=== PATIENT | female | born 1980 | race Caucasian/White ===

== ENCOUNTER → 2018-06-29 | Outpatient (REF) | payer BC ==
[~2018-06-29] MED LIST: PRENTAB55 PO; VITA100066 PO
== END ==
LOC: M LAB REF 10:51
PROVIDERS: ATTEND Physician Assistant
DX: J02.9 Acute pharyngitis, unspecified (principal)

== ENCOUNTER → 2019-12-24 | Outpatient (REF) | payer BC | LOC: M LAB REF 12-23 12:21 | PROVIDERS: ATTEND Nurse Practitioner Family | DX: J02.9 Acute pharyngitis, unspecified (principal) ==

== ENCOUNTER 2021-03-18 08:23 | Emergency (ER) | payer BC ==
[~2021-03-18] VITALS: Ht 157.5 cm; Wt 115.9 kg
--- OUTSIDE RECORDS SUMMARY | 2021-03-18 08:28 | CCD ---
Author Author [facility] Organization [facility] Address Unknown Phone Unavailable Care Team Providers Care Reeling Operator Name Role Phone RING, K SHERYL PA Unavailable Unavailable RING, K SHERYL PA Unavailable Unavailable RING, K SHERYL PA Unavailable Unavailable RING, K SHERYL PA Unavailable Unavailable RING, K SHERYL PA Unavailable Unavailable RING, K SHERYL PA Unavailable Unavailable RING, K SHERYL PA Unavailable Unavailable RING, K SHERYL PA Unavailable Unavailable RING, K SHERYL PA Unavailable Unavailable RING, K SHERYL PA Unavailable Unavailable RING, K SHERYL PA Unavailable Unavailable RING, K SHERYL PA Unavailable Unavailable RING, K SHERYL PA Unavailable Unavailable RING, K SHERYL PA Unavailable Unavailable RING, K SHERYL PA Unavailable Unavailable RING, K SHERYL PA Unavailable Unavailable RING, K SHERYL PA Unavailable Unavailable RING, K SHERYL PA Unavailable Unavailable RING, K SHERYL PA Unavailable Unavailable RING, K SHERYL PA Unavailable Unavailable RING, K SHERYL PA Unavailable Unavailable Re-disclosure Warning The records that you are about to access may contain information from federally-assisted alcohol or drug abuse programs. If such information is present, then the following federally mandated warning applies: This information has been disclosed to you from records protected by federal confidentiality rules (42 CFR part 2). The federal rules prohibit you from making any further disclosure of this information unless further disclosure is expressly permitted by the written consent of the person to whom it pertains or as otherwise permitted by 42 CFR part 2. A general authorization for the release of medical or other information is NOT sufficient for this purpose. The Federal rules restrict any use of the information to criminally investigate or prosecute any alcohol or drug abuse patient.The records that you are about to access may contain highly sensitive health information, the redisclosure of which is protected by Article 27-F of the [facility] Public Health law. If you continue you may have access to information: Regarding HIV / AIDS; Provided by facilities licensed or operated by the [facility] Office of Mental Health; or Provided by the [facility] Office for People With Developmental Disabilities. If such information is present, then the following [facility] mandated warning applies: This information has been disclosed to you from confidential records which are protected by state law. State law prohibits you from making any further disclosure of this information without the specific written consent of the person to whom it pertains, or as otherwise permitted by law. Any unauthorized further disclosure in violation of state law may result in a fine or mcc sentence or both. A general authorization for the release of medical or other information is NOT sufficient authorization for further disc losure. Family History Family Member Name Family Member Gender Family Member Status Date o f Status Description Data Source(s) Unknown Unknown Problem [facility] ([facility]) father Unknown Unknown Problem [facility], ) father-dx age 50s/paternal grandfather-d x age unknown- in 60s (Her fathers colon cancer pathology/genetic evals--MLH1,MSI-I6, MSI I2 immunohistochemical stains==>NO mismatch repair gene defect in MLH1,MSH1,MSH2) Encounters Encounter Providers Location Date Indications Data Source(s ) Outpatient Attender: SHERYL Galvan Primary 12/17/2020 09:25:00 AM EDT [facility] ([facility]) Immunizations Vaccine Date Status Description Data Source(s) COVID-19 VACCINE Pfizer 07/30/2020 12:00:00 AM EDT completed NYSIIS Vaccine Series Complete: YESThis Data wa s Submitted to [facility] Via [employer]. COVID-19 VACCINE Pfizer 07/09/2020 12:00:00 AM EST completed NYSIIS Vaccine Series Complete: NOThis Data was Submitted to [facility] Via [employer]. Medications Medication Brand Name Start Date Product Form Dose Route Admi nistrative Instructions Pharmacy Instructions Status Indications Reaction Description Data Source(s) Cephalexin 500 MG Oral Tablet Cephalexin 12/17/2020 12:00:00 AM EDT ORAL active MED[facility] ([facility]) Insurance Providers Payer name Policy type / Coverage type Policy ID Covered green party ID Covered green party's relationship to verde Policy Verde Plan Information BCBS [place] PPO 302/307 [id number] SP [id number] [employer] [id number] Self [id number] [place] - Employer Groups [facility] Part B [id number] Self [id number] BS/[place] [id number] Self [id number] [facility] SP BCBS [place] ROSAN PPO 302/[id number] SP [id number] [facility] BS Health Maintenance Organization (HMO) [id number] Self [id number] [employer]/[place] [id number] Self [id number] [employer] [facility] [employer] [id number] Self [id number] [facility] [id number] S [id number] Problems, Conditions, and Diagnoses No Information Surgeries/Procedures Procedure Description Date Indications Data Source(s) OFFICE OUTPATIENT VISIT 15 MINUTES 12/17/2020 12:00:00 AM EDT [facility] ([facility], [facility]) Results No Information Social History No Information Vital Signs ID Date Data Source UNK Name Value Range Interpretation Code Description Data Source(s) Systolic blood pressure 132 mm[Hg] 132 mm[Hg] [facility], [facility]) Diastolic blood pressure 92 mm[Hg] 92 mm[Hg] [facility] ([facility], [facility]) Heart rate 77 /min 77 /min [facility] ([facility], [facility]) Respiratory rate 16 /min 16 /min [facility] ( [facility], [facility]) Oxygen saturation in Arterial blood by Pulse oximetry 98 % 98 % [facility] ([facility], [facility]) Body temperature 98.1 [degF] 98.1 [degF] [facility] ([facility], [facility]) Body weight 250.00 [lb_av] 250.00 [lb_av] [facility] ([facility], [facility]) Body height 63 [in_i] 63 [in_i] [facility] ([facility]) 5'3" Body mass index (BMI) [Ratio] 44.3 kg/m2 44.3 k g/m2 [facility] ([facility])
[2021-03-18] MEDS ORDERED: GI COCKTAIL 50ML BTL(HYOSCYAMINE/MAALOX/LIDOCAINE VISCOUS)(1:3:1) PO ONE (09:15)
[2021-03-18] MEDS ORDERED: ASPIRIN 81 MG CHEW TABLET PO ONE (09:15)
--- NOTE | 2021-03-18 09:48 | REP ---
INDICATION: CHEST PAIN COMPARISON: None. TECHNIQUE: Portable AP view of the chest FINDINGS: The mediastinum and cardiac silhouette are within normal limits for portable technique. The lung shane are clear without acute consolidation, effusion, or pneumothorax. Skeletal structures are intact. IMPRESSION: No acute cardiopulmonary process appreciated. <Electronically signed by Blake Feliz > 03/18/21 0928
[2021-03-18 09:49] LABS: BASO # 0.1 10^3/uL (0.0-0.2); BASO % 1.3 % (0.0-1.0); EOS # 0.1 10^3/uL (0.0-0.5); EOS % 1.6 % (0.0-3.0); HEMATOCRIT 40.8 % (36.0-47.0); HEMOGLOBIN 13.4 g/dl (12.0-15.5); LYMPH # 1.7 10^3/uL (1.5-5.0); LYMPH % 28.1 % (24.0-44.0); MEAN CORPUSCULAR HEMOGLOBIN 27.3 pg (27.0-33.0); MEAN CORPUSCULAR HGB CONC 32.8 g/dl (32.0-36.5); MEAN CORPUSCULAR VOLUME 83.1 fl (80.0-96.0); MONO # 0.4 10^3/uL (0.0-0.8); MONO % 6.1 % (2.0-8.0); NEUTROPHILS # 3.9 10^3/uL (1.5-8.5); NEUTROPHILS % 62.7 % (36.0-66.0); PLATELET COUNT, AUTOMATED 342 10^3/uL (150-450); RED BLOOD COUNT 4.91 10^6/uL (4.00-5.40); WHITE BLOOD COUNT 6.2 10^3/uL (4.0-10.0)
--- OUTSIDE RECORDS SUMMARY | 2021-03-18 10:07 | CCD ---
Author Author [facility] Organization [facility] Address Unknown Phone Unavailable Care Team Providers Care Geopolitics Teacher Name Role Phone RING, K SHERYL PA [...] K SHERYL PA Unavailable Unavailable RING, K SHREYL PA Unavailable Unavailable RING, K SHERYL PA [...] is protected by Article 27-F of the [facility] Public Health law. If you continue you may have access to information: Regarding HIV / AIDS; Provided by facilities licensed or operated by the [facility] Office of Mental Health; or Provided by the [facility] Office for People With Developmental Disabilities. If such information is present, then the following [facility] mandated warning applies: This information has been [...] law may result in a fine or longterm sentence or both. A general authorization for the release of medical or other information is NOT sufficient authorization for further disc losure. Family History Family Member Name Family Member Gender Family Member Status Date o f Status Description Data Source(s) Unknown Unknown Problem [facility] ([facility]) father Unknown Unknown Problem [facility] ) father-dx age 50s/paternal grandfather-d x age unknown- in 60s (Her fathers colon cancer pathology/genetic evals--MLH1,MSI-I6, MSI I2 immunohistochemical stains==>NO mismatch repair gene defect in MLH1,MSH1,MSH2) Encounters Encounter Providers Location Date Indications Data Source(s ) Outpatient Attender: SHERYL Galvan Primary 12/17/2020 09:25:00 AM EDT [facility] ([facility]) Immunizations Vaccine Date Status Description Data Source(s) COVID-19 VACCINE Pfizer 07/30/2020 12:00:00 AM EDT completed NYSIIS Vaccine Series Complete: YESThis Data wa s Submitted to [facility] Via [email or web address]. COVID-19 VACCINE Pfizer 07/09/2020 12:00:00 AM EST completed NYSIIS Vaccine Series Complete: NOThis Data was Submitted to [facility] Via [email or web address]. Medications Medication Brand Name Start Date Product Form Dose Route Admi nistrative Instructions Pharmacy Instructions Status Indications Reaction Description Data Source(s) Cephalexin 500 MG Oral Tablet Cephalexin 12/17/2020 12:00:00 AM EDT ORAL active [facility] ([facility], [facility]) Insurance Providers Payer name Policy type / Coverage type Policy ID Covered alliance party ID Covered alliance party's relationship to verde Policy Verde Plan Information BCBS [place] PPO 302/307 [id number] SP [id number] [employer] [id number] Self [id number] [employer] - Employer Groups [facility] Part B [id number] Self [id number] BS/[employer] [id number] Self [id number] [facility] SP BCBS [place] ROS[place] PPO 302/307 [id number] SP [id number] [facility] Health Maintenance Organization (HMO) [id number] Self [id number] BCBS/[place] [id number] Self [id number] [facility] [employer] [id number] Self [id number] [facility] [id number] S [id number] Problems, Conditions, and Diagnoses No Information Surgeries/Procedures Procedure Description Date Indications Data Source(s) OFFICE OUTPATIENT VISIT 15 MINUTES 12/17/2020 12:00:00 AM EDT [facility] ([facility], [facility]) Results No Information Social History No Information Vital Signs ID Date Data Source UNK Name Value Range Interpretation Code Description Data Source(s) Systolic blood pressure 132 mm[Hg] 132 mm[Hg] [facility]) Diastolic blood pressure 92 mm[Hg] 92 mm[Hg] [facility] ([facility], [facility]) Heart rate 77 /min 77 /min [facility] ([facility], [facility]) Respiratory rate 16 /min 16 /min [facility] ( [facility], [facility]) Oxygen saturation in Arterial blood by Pulse oximetry 98 % 98 % [facility] ([facility], [facility]) Body temperature 98.1 [degF] 98.1 [degF] [facility] ([facility], [facility]) Body weight 250.00 [lb_av] 250.00 [lb_av] [facility] ([facility], [facility]) Body height 63 [in_i] 63 [in_i] [facility] ([facility]) 5'3" Body mass index (BMI) [Ratio] 44.3 kg/m2 44.3 k g/m2 [facility] ([facility])
[2021-03-18] MEDS ORDERED: ISOVUE-370 76% 100ML VIAL As Ordered ONE (10:14)
[2021-03-18 10:36] LABS: ALBUMIN 3.3 GM/DL (3.2-5.2); ALT/SGPT 34 U/L (12-78); BILIRUBIN,DIRECT < 0.1 MG/DL (0.0-0.2); BILIRUBIN,TOTAL 0.3 MG/DL (0.2-1.0); LIPASE 75 U/L (73-393); NT-PRO BNP 49 PG/ML (<125); TOTAL PROTEIN 7.1 GM/DL (6.4-8.2)
--- NOTE | 2021-03-18 11:05 | REP ---
INDICATION: cp r/o PE COMPARISON: None. TECHNIQUE: Axial contrast enhanced images from the thoracic inlet to the upper abdomen using pulmonary embolus technique with multiplanar re-formations. 75 ml Isovue 370 intravenous contrast material administered without complication. This CT examination was performed using the following dose reduction techniques: Automated exposure control, adjustment of mA and/or kv according to the patient's size, and use of iterative reconstruction technique. FINDINGS: Satisfactory enhancement of the pulmonary vasculature is achieved and no filling defects are identified to suggest pulmonary embolus. Further evaluation of the mediastinum demonstrates normal thoracic aorta, heart and pericardium. The bilateral lung shane are well aerated and clear without consolidation pleural effusion or pneumothorax. Tracheobronchial tree is patent. No nodule or mass lesion is identified. No adenopathy noted. Limited upper abdomen demonstrates hepatomegaly and hepatosteatosis. Surrounding musculoskeletal structures intact IMPRESSION: No evidence for pulmonary embolus. No acute mediastinal or pleural parenchymal process. <Electronically signed by Blake Feliz > 03/18/21 2930
[2021-03-18 16:23] VITALS: BP 119/77
--- NOTE | 2021-03-21 07:27 | ECGEPIP ---
[facility] - ED Test Date: 2021-03-18 Pat Name: SHELLIE ROCHA Department: Room: - Gender: Female Manager Video: peña : 1980 Requested By: Juanita Carvalho Order Number: [id number] Reading MD: Juanita Carvalho Measurements Intervals [place] Rate: 72 P: 42 [place]: 120 QRS: 40 QRSD: 84 T: 30 QT: 424 QTc: 464 Interpretive Statements Normal sinus rhythm with sinus arrhythmia No prior Electronically Signed on 03-21-2021 7:26:56 EST by Juanita Carvalho
--- NOTE | 2021-03-21 07:39 | ECGEPIP ---
[facility] - ED Test Date: 2021-03-18 Pat Name: SHELLIE ROCHA Department: Room: - Gender: Female Fashion Intern: TRACY : 1980 Requested By: Juanita Carvalho Order Number: [id number] Reading MD: Juanita Carvalho Measurements Intervals [place] Rate: 63 P: 33 GA: 114 QRS: 26 QRSD: 86 T: 7 QT: 444 QTc: 454 Interpretive Statements Normal sinus rhythm decreased rate 03/18/21 Electronically Signed on 03-21-2021 7:39:33 EST by Juanita Carvalho
== END 2021-03-18 16:42 | disposition home or self-care (01) ==
LOC: M ED 08:23
DX: R07.9 Chest pain, unspecified (principal); Z79.899 Other long term (current) drug therapy; Z88.1 Allergy status to other antibiotic agents
CPT/HCPCS: 71045; 71275; 80047; 80076; 83690; 83880; 84484; 85025; 93005; 93041; 94760; 99285; Q9967

== ENCOUNTER → 2022-04-16 | Outpatient (REF) | payer BC | LOC: M SFHCDERM 17:06 | PROVIDERS: ATTEND Nurse Practitioner Family | DX: D49.2 Neoplasm of unspecified behavior of bone, soft tissue, and skin (principal) ==

== ENCOUNTER → 2022-05-31 | Outpatient (CLI) | payer BC, OTHER ==
[~2022-05-31] MED LIST changes: +OMEP40CA4 PO; +SYMB16INH INH; +VITA100093 PO
== END ==
LOC: M LABSMTC 09:06
PROVIDERS: ATTEND Anesthesiology
DX: Z01.812 Encounter for preprocedural laboratory examination (principal); Z11.52 Encounter for screening for COVID-19

== ENCOUNTER 2022-06-04 07:29 | Day surgery (SDC) | payer BC ==
[~2022-06-04] VITALS: Ht 157.5 cm; Wt 117.4 kg
[~2022-06-04 07:29] MED LIST changes: +NS 1,000 ML IV ONE
[2022-06-04] MEDS ORDERED: LIDOCAINE 2% 100MG/5ML SDV (FOR ANES.) As Ordered ONE (08:09)
[2022-06-04] MEDS ORDERED: propofoL 200 MG/20 ML VIAL As Ordered ONE ×2 (08:09→08:41)
[2022-06-04 09:10] VITALS: BP 163/97
== END 2022-06-04 09:20 | disposition home or self-care (01) ==
LOC: M OPP 07:29
PROVIDERS: ATTEND Internal Medicine Gastroenterology
DX: Z12.11 Encounter for screening for malignant neoplasm of colon (principal); Z80.0 Family history of malignant neoplasm of digestive organs; D12.7 Benign neoplasm of rectosigmoid junction; Z79.51 Long term (current) use of inhaled steroids; Z79.899 Other long term (current) drug therapy; Z88.1 Allergy status to other antibiotic agents; Z91.02 Food additives allergy status; F41.9 Anxiety disorder, unspecified; G43.909 Migraine, unspecified, not intractable, without status migrainosus; R06.2 Wheezing; R00.2 Palpitations; U09.9 Post COVID-19 condition, unspecified

== ENCOUNTER → 2023-05-03 | Outpatient (CLI) | payer BC ==
[~2023-05-03] MED LIST changes: +METHACHOLINE KIT INH ONE; -NS 1,000 ML IV ONE
== END ==
LOC: M CARPUL 08:37
PROVIDERS: ATTEND Physician Assistant
DX: R06.00 Dyspnea, unspecified (principal)
CPT/HCPCS: 94070; J7674